=== PATIENT | female | born 1980 | race Caucasian/White ===

== ENCOUNTER 2016-11-03 23:02 | Emergency (ER) | payer OTHER ==
[~2016-11-03] VITALS: Ht 154.9 cm; Wt 96.0 kg
[~2016-11-03 23:02] MED LIST: ASPI-1061 PO; LISI-660 PO; METO25 PO; ROSU20 PO
[2016-11-04] MEDS ORDERED: IBUPROFEN 800 MG TABLET PO ONE (00:30)
[2016-11-04] MEDS ORDERED: ACETAMINOPHEN 500 MG TABLET PO ONE (00:30)
[2016-11-04 03:46] VITALS: BP 138/82
== END 2016-11-04 03:58 | disposition home or self-care (01) ==
LOC: EMS 23:03
DX: S56.912A Strain of unspecified muscles, fascia and tendons at forearm level, left arm, initial encounter (principal); M77.12 Lateral epicondylitis, left elbow; E11.9 Type 2 diabetes mellitus without complications; E78.00 Pure hypercholesterolemia, unspecified; I10 Essential (primary) hypertension; I25.2 Old myocardial infarction; F17.210 Nicotine dependence, cigarettes, uncomplicated; Z88.5 Allergy status to narcotic agent; Z79.82 Long term (current) use of aspirin; Z95.1 Presence of aortocoronary bypass graft; W19.XXXA Unspecified fall, initial encounter; Y93.89 Activity, other specified; Y92.89 Other specified places as the place of occurrence of the external cause; Y99.8 Other external cause status
CPT/HCPCS: 99284

== ENCOUNTER 2021-02-22 21:23 | Emergency (ER) | payer OTHER ==
[~2021-02-22] VITALS: Ht 157.5 cm; Wt 100.0 kg
[~2021-02-22 21:23] MED LIST changes: -ASPI-1061 PO; +ASPI81TA87 PO; -LISI-660 PO; +LISI-892 PO; -ROSU20 PO; +ROSU20TA73 PO
[2021-02-22] MEDS ORDERED: EZET-86 PO (22:21)
[2021-02-22] MEDS ORDERED: CETI-450 PO (22:23)
[2021-02-22] MEDS ORDERED: EZET10TA57 PO (22:23)
[2021-02-22 23:20] VITALS: BP 150/94
[2021-02-22] MEDS ORDERED: HYDROCORTISONE 1% 30 GM CREAM TP ONE (23:45)
== END 2021-02-22 23:52 | disposition home or self-care (01) ==
LOC: EMS 21:40
DX: L20.9 Atopic dermatitis, unspecified (principal); E11.9 Type 2 diabetes mellitus without complications; E78.00 Pure hypercholesterolemia, unspecified; I10 Essential (primary) hypertension; I25.2 Old myocardial infarction; F17.210 Nicotine dependence, cigarettes, uncomplicated
CPT/HCPCS: 99282; Z7502; Z7610

== ENCOUNTER 2023-12-03 20:45 | Emergency (ER) | payer BC, OTHER ==
[~2023-12-03] VITALS: Ht 154.9 cm; Wt 104.5 kg
[~2023-12-03 20:45] MED LIST changes: +CETI-450 PO; +EZET-86 PO; +EZET10TA57 PO
[2023-12-03 20:57] VITALS: BP 138/75; PULSE 77; RESP 18; TEMP 98.2
[2023-12-03] MEDS ORDERED: ACET-3385 PO (22:40)
[2023-12-03] MEDS ORDERED: AMOX-457 PO (22:40)
[2023-12-03] MEDS: AMOX TR/POT CLAV 875 MG/125 MG TABLET PO ONE (22:54)
== END 2023-12-03 22:56 | disposition home or self-care (01) ==
LOC: EMS 20:47
DX: H66.92 Otitis media, unspecified, left ear (principal); E11.9 Type 2 diabetes mellitus without complications; E78.00 Pure hypercholesterolemia, unspecified; I10 Essential (primary) hypertension; I25.2 Old myocardial infarction; F17.210 Nicotine dependence, cigarettes, uncomplicated; Z88.5 Allergy status to narcotic agent
CPT/HCPCS: 99283